=== PATIENT | female | born 1940 | race Caucasian/White ===

== ENCOUNTER 2017-12-18 09:17 | Emergency (ER) | payer MEDICARE, BC ==
[~2017-12-18 09:17] MED LIST: Iopamidol 370 76% 100 ML VIAL ONE
[2017-12-18] MEDS ORDERED: Sodium Chloride 0.9% 1,000 ML ONE (10:15)
[2017-12-18] MEDS ORDERED: Ondansetron HCl/PF 4 MG/2 ML Vial ONE ×2 (10:15→13:30)
[2017-12-18 10:45] LABS: CRP (Inflammatory) 4.35 mg/dL (= or < 0.5); Magnesium 1.8 mg/dL (1.6-2.6)
[2017-12-18 10:46] LABS: ALT (SGPT) 14 U/L (8-55); AST (SGOT) 15 U/L (5-34); Albumin 4.4 g/dL (3.4-4.8); Alkaline Phosphatase 82 U/L (40-150); Anion Gap 15 mmol/L (10-20); BUN (Urea Nitrogen) 10 mg/dL (9.8-20.1); Bilirubin, Total 0.4 mg/dL (0.2-1.2); Calc. Creatinine Clearance 0 mL/min (70-130); Calcium 9.8 mg/dL (7.8-10.44); Carbon Dioxide 24 mmol/L (23-31); Chloride 99 mmol/L (98-107); Estimated GFR-MDRD 66; Globulin 4.2 g/dL (2.4-3.5); Glucose 113 mg/dL (83-110); Potassium 3.9 mmol/L (3.5-5.1); Protein, Total 8.6 g/dL (6.0-8.3); Sodium 134 mmol/L (136-145)
[2017-12-18 10:49] LABS: Hemoglobin 14.7 g/dL (12.0-16.0); Mean Corpuscular HGB CONC 32.2 g/dL (32.0-36.0); Mean Corpuscular Hemoglobin 30.1 pg (27.0-31.0); Mean Corpuscular Volume 93.5 fL (78.0-98.0); Mean Platelet Volume 6.3 fL (7.4-10.4); Platelet Count 367 thou/uL (130-400); RBC Distribution Width 13.2 % (11.5-14.5); Red Blood Cell (RBC) Count 4.89 mill/uL (4.20-5.40); White Blood Cell (WBC) Count 12.3 thou/uL (4.8-10.8)
[2017-12-18 10:57] LABS: Eosinophils 1 % (0-10); Lymphocytes 14 % (21-51); MDiff Complete? YES; Monocytes 3 % (0-10); Neutrophil 81 % (42-75); PLT Morphology Comment Appears Adequate; RBC Morphology Normal
--- NOTE | 2017-12-18 11:00 | CT ---
CT HEAD NONCONTRAST: HISTORY: Headache. FINDINGS: There is no evidence of acute intracranial hemorrhage or infarct. Mild chronic ischemic small-vessel disease within the periventricular white matter. There is no mass effect or shift of midline struct ures. Visualized paranasal sinuses remain well aerated. Calcification in the arterial structures. IMPRESSION: 1. Atherosclerosis. Mild chronic ischemic small-vessel disease. 2. No acute intracranial abnormalities are demonstrated. POS: [facility]
--- NOTE | 2017-12-18 12:19 | CT ---
CT ARTERIOGRAM NECK WITH IV CONTRAST AND 3D MIP IMAGING: CT ARTERIOGRAM HEAD WITH IV CONTRAST AND 3D MIP IMATING: CT BRAIN WITH IV CONTRAST: HISTORY: Headache. Altered mental status. Neck pain. FINDINGS: No abnormal areas of intracranial contrast enhancement are apparent. Heterogeneous density of the thyroid gland without focal mass apparent. Degenerative changes of the cervical spine. Prominent calcification at the aortic arch, with normal branching of the great vessels. Good flow in to each internal carotid and vertebral system. Calcification and plaque at the proximal left subclav libra artery results in stenosis of approximately 50%. Prominent calcification at the right carotid bifurcation, with focal area of stenosis estimated at 50 %. Prominent calcification at the left carotid bifurcation with short-segment stenosis of approximately 60%, proximally. Good flow into each internal carotid siphon, with mild calcification. The [place] of [place] is intact . Good arterial flow into each cerebral system. IMPRESSION: 1. Atherosclerosis. 2. Mild to moderate stenosis involving the origin of each internal carotid artery and the left subcl faizan artery. POS: [facility]
== END 2017-12-18 13:50 | disposition short-term general hospital (02) ==
LOC: NAV ERS 09:17
DX: M43.6 Torticollis (principal); R79.82 Elevated C-reactive protein (CRP); D72.829 Elevated white blood cell count, unspecified; I10 Essential (primary) hypertension; F41.9 Anxiety disorder, unspecified; F17.210 Nicotine dependence, cigarettes, uncomplicated; Z79.899 Other long term (current) drug therapy
CPT/HCPCS: 70450; 70496; 70498; 80053; 83735; 85025; 86140; 93005; 94760; 96361; 96374; 96375; 96376; J1170; J2270; J2405; J7050

== ENCOUNTER 2017-12-26 12:11 | Emergency (ER) | payer MEDICARE, BC ==
[2017-12-26] MEDS ORDERED: Ketorolac Tromethamine 30 MG/ML VIAL ONE (13:36)
[2017-12-26] MEDS ORDERED: Ondansetron PF 4 MG/2 ML Vial ONE (13:36)
[2017-12-26 13:48] LABS: #Basophils 0.2 thou/uL (0.0-0.2); #Eosinphils 0.1 thou/uL (0.0-0.7); #Lymphocytes 1.2 thou/uL (1.20-3.40); #Neutrophils 9.8 thou/uL (1.40-6.50); %Basophils 1.5 % (0.0-1.0); %Eosinophils 0.4 % (0.0-10.0); %Lymphocytes 9.9 % (21.0-51.0); %Neutrophils 80.2 % (42.0-75.0); Hemoglobin 12.3 g/dL (12.0-16.0); Mean Corpuscular HGB CONC 32.1 g/dL (32.0-36.0); Mean Corpuscular Hemoglobin 30.2 pg (27.0-31.0); Mean Platelet Volume 5.8 fL (7.4-10.4); Platelet Count 460 thou/uL (130-400); RBC Distribution Width 12.9 % (11.5-14.5); Red Blood Cell (RBC) Count 4.08 mill/uL (4.20-5.40); White Blood Cell (WBC) Count 12.3 thou/uL (4.8-10.8)
[2017-12-26 14:03] LABS: ALT (SGPT) 17 U/L (8-55); AST (SGOT) 15 U/L (5-34); Albumin 3.7 g/dL (3.4-4.8); Alkaline Phosphatase 67 U/L (40-150); Anion Gap 16 mmol/L (10-20); BUN (Urea Nitrogen) 13 mg/dL (9.8-20.1); Bilirubin, Total 0.2 mg/dL (0.2-1.2); Calc. Creatinine Clearance 0 mL/min (70-130); Calcium 9.2 mg/dL (7.8-10.44); Carbon Dioxide 27 mmol/L (23-31); Chloride 94 mmol/L (98-107); Estimated GFR-MDRD 77; Glucose 83 mg/dL (83-110); Potassium 3.9 mmol/L (3.5-5.1); Protein, Total 6.7 g/dL (6.0-8.3); Sodium 133 mmol/L (136-145)
== END 2017-12-26 15:20 | disposition home or self-care (01) ==
LOC: NAV ERS 12:11
DX: M19.90 Unspecified osteoarthritis, unspecified site (principal); I10 Essential (primary) hypertension; F41.9 Anxiety disorder, unspecified; F17.210 Nicotine dependence, cigarettes, uncomplicated; Z79.891 Long term (current) use of opiate analgesic; Z79.899 Other long term (current) drug therapy
CPT/HCPCS: 80053; 85025; 86140; 96374; 96375; J1885; J2405